=== PATIENT | male | born 1970 | race Caucasian/White ===

== ENCOUNTER 2020-09-03 06:02 | Inpatient (IN) | payer MEDICAID ==
[~2020-09-03] VITALS: Ht 177.8 cm; Wt 74.4 kg
[2020-09-03 08:16] LABS: Urine Amorphous Crystal FEW /hpf (None Seen); Urine Bacteria NONE SEEN /hpf (None Seen); Urine Blood Negative /uL (Negative); Urine Specific Gravity 1.008 (1.001-1.035); Urine WBC 1 /hpf (0 - 3)
[2020-09-03 08:22] LABS: Basophils # (auto) 0.1 10 ^3/uL (0-0.2); Eosinophils # (auto) 0 10 ^3/uL (0-0.8); Lymphocytes # (auto) 0.6 10 ^3/uL (0.4-5.4); Mean Corpuscular Volume 107.8 fL (80.0-100.0)
[2020-09-03 08:28] LABS: Basophils % (auto) 0.8 % (0.0-2.0); Hematocrit 41.1 % (41.0-53.0); Hemoglobin 14.4 g/dL (13.5-17.5); Lymphocytes % (auto) 3.3 % (10.0-50.0); Mean Corpuscular Hemoglobin 37.7 pg (28.0-32.0); Mean Corpuscular Hgb Conc. 34.9 g/dL (32.0-36.0); Monocytes # (auto) 2.4 10 ^3/uL (0-1.3); Neutrophils # (auto) 15.1 10 ^3/uL (1.6-8.6); Neutrophils % (auto) 82.9 % (37.0-80.0); Platelet Count (auto) 283 10^3/uL (140-450); Red Blood Cells 3.81 10^6/uL (4.5-5.90); Red Cell Distribution Width 12.7 % (11.8-14.3); White Blood Cell 18.2 10^3/uL (4.4-10.8)
[2020-09-03] MEDS ORDERED: methylPREDNISolone SOD SUCC 125 MG/2 ML VL IV ONE (08:30)
[2020-09-03] MEDS ORDERED: IPRATROPIUM BROM 0.5 MG/2.5ML INH SOL NEB ONE (08:30)
[2020-09-03] MEDS ORDERED: cefTRIAXone 1GM/50ML D5W 50 ML IV ONE (08:30)
[2020-09-03] MEDS ORDERED: ALBUTEROL SULF 2.5 MG/0.5ML(0.5%) NEB SOLN NEB ONE (08:30)
[2020-09-03 09:08] LABS: Albumin 2.4 g/dL (3.4-5.0)
[2020-09-03 09:10] LABS: BUN/Creatinine Ratio 9.8
[2020-09-03 09:13] LABS: Bilirubin, Total 2.3 mg/dL (0.2-1.0); Total Protein 6.3 g/dL (6.4-8.2)
[2020-09-03 09:14] LABS: Potassium 2.7 mmol/L (3.5-5.1)
[2020-09-03] MEDS ORDERED: AZITHROMYCIN 500MG/ 250ML 250 ML IV ONE (09:15)
[2020-09-03] MEDS ORDERED: POTASSIUM EFFERVESENT TAB 25 MEQ PO ONE (09:15)
[2020-09-03] MEDS ORDERED: VANCOMYCIN PER PHARMACY 0 MG IV SCH (11:00)
[2020-09-03] MEDS ORDERED: NITROGLYCERIN 0.4 MG SL TAB SL PRN (11:00)
[2020-09-03] MEDS ORDERED: POTASSIUM CHLORIDE 40 MEQ in SOD CHL 0.45% 1,000 ML IV SCH (11:00)
[2020-09-03] MEDS ORDERED: ACETAMINOPHEN 500 MG TAB PO PRN (11:00)
[2020-09-03] MEDS ORDERED: MORPHINE SULF INJ 2 MG/ML SYRINGE 1ML IV PRN (11:00)
[2020-09-03] MEDS ORDERED: IOHEXOL 300 MG/ML 100ML BOTTLE IJ ONE ×2 (11:14→13:05)
[2020-09-03] MEDS: PIPERACILLIN-TAZOB 3.375GM 100 ML IV SCH ×3 (12:36→23:41)
[2020-09-03 13:04] LABS: Amphetamine Screen, Urine NEGATIVE (NEGATIVE); Barbiturate Scree,Urine NEGATIVE (NEGATIVE); Benzodiazephine Screen, Urine NEGATIVE (NEGATIVE); Cannabinoid Screen, Urine POSITIVE (NEGATIVE); Cocaine Screen, Urine NEGATIVE (NEGATIVE); Opiate Scree,Urine NEGATIVE (NEGATIVE); Phencyclidine Screen, Urine NEGATIVE (NEGATIVE)
[2020-09-03 13:30] VITALS: BP 109/73
[2020-09-03] MEDS ORDERED: ENOXAPARIN SOD 80 MG/0.8ML SYRINGE SC ONE (14:30)
[2020-09-03] MEDS ORDERED: ENOXAPARIN SOD 100 MG/1 ML SYRINGE SC ONE (14:30)
[2020-09-03 15:11] VITALS: BP 109/73
[2020-09-03 16:56] VITALS: BP 102/73
[2020-09-03] MEDS: ALBUTEROL SULF 2.5 MG/0.5ML(0.5%) NEB SOLN NEB PRN (19:17)
[2020-09-03] MEDS: IPRATROPIUM BROM 0.5 MG/2.5ML INH SOL NEB PRN (19:17)
[2020-09-03] MEDS: HYDROcodone-ACET 5/325MG TAB PO PRN (20:18)
[2020-09-03] MEDS: ENOXAPARIN SOD 80 MG/0.8ML SYRINGE SC SCH (21:21)
[2020-09-03 22:00] VITALS: BP 117/73
[2020-09-03] MEDS ORDERED: ENOXAPARIN SOD 100 MG/1 ML SYRINGE SC SCH (22:00)
[2020-09-04 05:00] VITALS: BP 109/73
[2020-09-04] MEDS: PIPERACILLIN-TAZOB 3.375GM 100 ML IV SCH ×4 (05:53→23:45)
[2020-09-04 06:17] LABS: Basophils # (auto) 0 10 ^3/uL (0-0.2); Basophils % (auto) 0.1 % (0.0-2.0); Eosinophils # (auto) 0 10 ^3/uL (0-0.8); Hematocrit 38.7 % (41.0-53.0); Hemoglobin 13.6 g/dL (13.5-17.5); Lymphocytes # (auto) 0.8 10 ^3/uL (0.4-5.4); Mean Corpuscular Hemoglobin 38.4 pg (28.0-32.0); Mean Corpuscular Hgb Conc. 35.2 g/dL (32.0-36.0); Mean Corpuscular Volume 108.9 fL (80.0-100.0); Monocytes # (auto) 1.1 10 ^3/uL (0-1.3); Monocytes % (auto) 7.7 % (0.0-12.0); Neutrophils # (auto) 12.1 10 ^3/uL (1.6-8.6); Neutrophils % (auto) 86.2 % (37.0-80.0); Platelet Count (auto) 318 10^3/uL (140-450); Red Blood Cells 3.55 10^6/uL (4.5-5.90)
[2020-09-04 06:33] LABS: INR 1.11 (0.9-1.15); Partial Thromboplastin Time 33.4 sec (23.0-31.2)
[2020-09-04 06:35] LABS: Calcium 8.2 mg/dL (8.5-10.1); Magnesium 2.1 mg/dL (1.6-2.6)
[2020-09-04 06:44] LABS: Potassium 2.7 mmol/L (3.5-5.1)
[2020-09-04] MEDS ORDERED: POTASSIUM CHL 20 Meq TABLET PO ONE (08:30)
[2020-09-04] MEDS: FAMOTIDINE 20 MG TAB PO SCH (08:38)
[2020-09-04] MEDS: ENOXAPARIN SOD 80 MG/0.8ML SYRINGE SC SCH ×2 (08:38→21:15)
[2020-09-04 09:00] VITALS: BP 109/71
[2020-09-04] MEDS ORDERED: SOD CHL 0.9%/ KCL 40MEQ 1,000 ML IV ONE (10:30)
[2020-09-04] MEDS: AZITHROMYCIN 500MG/ 250ML 250 ML IV SCH (12:18)
[2020-09-04 13:00] VITALS: BP 111/75
[2020-09-04 17:00] VITALS: BP 113/73
[2020-09-04 20:00] VITALS: BP 99/69
[2020-09-04] MEDS: MORPHINE SULF INJ 2 MG/ML SYRINGE 1ML IV PRN (21:15)
[2020-09-04 22:00] VITALS: BP 99/69
[2020-09-05 05:00] VITALS: BP 114/72
[2020-09-05 05:55] LABS: Basophils # (auto) 0.1 10 ^3/uL (0-0.2); Basophils % (auto) 0.6 % (0.0-2.0); Eosinophils # (auto) 0 10 ^3/uL (0-0.8); Eosinophils % (auto) 0.1 % (0.0-7.0); Hematocrit 38.3 % (41.0-53.0); Hemoglobin 13.6 g/dL (13.5-17.5); Lymphocytes % (auto) 8.7 % (10.0-50.0); Mean Corpuscular Hemoglobin 38.7 pg (28.0-32.0); Mean Corpuscular Hgb Conc. 35.6 g/dL (32.0-36.0); Mean Corpuscular Volume 108.6 fL (80.0-100.0); Monocytes # (auto) 1.2 10 ^3/uL (0-1.3); Monocytes % (auto) 10.8 % (0.0-12.0); Neutrophils # (auto) 8.8 10 ^3/uL (1.6-8.6); Neutrophils % (auto) 79.8 % (37.0-80.0); Platelet Count (auto) 355 10^3/uL (140-450); Red Blood Cells 3.53 10^6/uL (4.5-5.90); Red Cell Distribution Width 12.8 % (11.8-14.3); White Blood Cell 11.1 10^3/uL (4.4-10.8)
[2020-09-05] MEDS: PIPERACILLIN-TAZOB 3.375GM 100 ML IV SCH ×3 (06:07→18:06)
[2020-09-05 06:12] LABS: Potassium 3.8 mmol/L (3.5-5.1)
[2020-09-05] MEDS: MORPHINE SULF INJ 2 MG/ML SYRINGE 1ML IV PRN (06:19)
[2020-09-05 06:20] LABS: Albumin 2.4 g/dL (3.4-5.0); Bilirubin, Total 1.6 mg/dL (0.2-1.0); Calcium 8.3 mg/dL (8.5-10.1); Ferritin 793.5 ng/mL (10-322); Total Protein 6.2 g/dL (6.4-8.2)
[2020-09-05 06:21] LABS: Carcinoembryonic Antigen 1.29 ng/mL (<5.0 OR =)
[2020-09-05 09:00] VITALS: BP 118/86
[2020-09-05] MEDS: FAMOTIDINE 20 MG TAB PO SCH (09:15)
[2020-09-05] MEDS: AZITHROMYCIN 500MG/ 250ML 250 ML IV SCH (09:15)
[2020-09-05] MEDS: ENOXAPARIN SOD 80 MG/0.8ML SYRINGE SC SCH ×2 (09:15→22:46)
[2020-09-05] MEDS: IPRATROPIUM BROM 0.5 MG/2.5ML INH SOL NEB PRN ×2 (11:59→18:39)
[2020-09-05] MEDS: ALBUTEROL SULF 2.5 MG/0.5ML(0.5%) NEB SOLN NEB PRN ×2 (11:59→18:39)
[2020-09-05 13:00] VITALS: BP 124/81
[2020-09-05 13:15] LABS: Hepatitis B Core IgM Negative; Hepatitis B Surface Antigen Negative (Negative)
[2020-09-05 16:46] VITALS: BP 103/68
[2020-09-05 22:00] VITALS: BP 115/64
[2020-09-05] MEDS: HYDROcodone-ACET 5/325MG TAB PO PRN (23:04)
[2020-09-06] MEDS: PIPERACILLIN-TAZOB 3.375GM 100 ML IV SCH ×3 (00:03→11:58)
[2020-09-06 05:00] VITALS: BP 123/79
[2020-09-06] MEDS: ENOXAPARIN SOD 80 MG/0.8ML SYRINGE SC SCH ×2 (08:59→22:00)
[2020-09-06] MEDS: FAMOTIDINE 20 MG TAB PO SCH (08:59)
[2020-09-06] MEDS: AZITHROMYCIN 500MG/ 250ML 250 ML IV SCH (08:59)
[2020-09-06 09:00] VITALS: BP 114/71
[2020-09-06 13:00] VITALS: BP 105/69
[2020-09-06 13:26] VITALS: BP 114/71
[2020-09-06 16:32] VITALS: BP 96/60
[2020-09-06] MEDS: cefTRIAXone 1GM/50ML D5W 50 ML IV SCH (18:00)
[2020-09-06 22:00] VITALS: BP 119/75
[2020-09-07 05:00] VITALS: BP 111/68
[2020-09-07 09:00] VITALS: BP 103/65
[2020-09-07] MEDS: FAMOTIDINE 20 MG TAB PO SCH (09:29)
[2020-09-07] MEDS: ENOXAPARIN SOD 80 MG/0.8ML SYRINGE SC SCH ×2 (09:29→21:16)
[2020-09-07] MEDS: cefTRIAXone 1GM/50ML D5W 50 ML IV SCH (09:29)
[2020-09-07] MEDS: AZITHROMYCIN 500MG/ 250ML 250 ML IV SCH (09:29)
[2020-09-07] MEDS: HYDROcodone-ACET 5/325MG TAB PO PRN ×2 (09:36→21:17)
[2020-09-07 12:37] VITALS: BP 105/73
[2020-09-07 17:00] VITALS: BP 116/76
[2020-09-07 22:00] VITALS: BP 103/75
[2020-09-08 05:00] VITALS: BP 112/71
[2020-09-08 07:00] LABS: Hemoglobin 13.7 g/dL (13.5-17.5)
[2020-09-08 07:03] LABS: Basophils # (auto) 0.1 10 ^3/uL (0-0.2); Basophils % (auto) 1.8 % (0.0-2.0); Eosinophils # (auto) 0.1 10 ^3/uL (0-0.8); Eosinophils % (auto) 1.4 % (0.0-7.0); Hematocrit 39.3 % (41.0-53.0); Lymphocytes # (auto) 1.4 10 ^3/uL (0.4-5.4); Lymphocytes % (auto) 21.2 % (10.0-50.0); Mean Corpuscular Hemoglobin 38.4 pg (28.0-32.0); Mean Corpuscular Volume 109.7 fL (80.0-100.0); Monocytes # (auto) 0.8 10 ^3/uL (0-1.3); Monocytes % (auto) 12.7 % (0.0-12.0); Neutrophils # (auto) 4.2 10 ^3/uL (1.6-8.6); Neutrophils % (auto) 62.9 % (37.0-80.0); Nucleated Red Blood Cells % 0.1 %; Red Blood Cells 3.58 10^6/uL (4.5-5.90); White Blood Cell 6.6 10^3/uL (4.4-10.8)
[2020-09-08 07:11] LABS: INR 0.97 (0.9-1.15); Partial Thromboplastin Time 26.9 sec (23.0-31.2)
[2020-09-08 07:16] LABS: Potassium 4.1 mmol/L (3.5-5.1)
[2020-09-08 07:21] LABS: Albumin 2.6 g/dL (3.4-5.0); BUN/Creatinine Ratio 12.5; Bilirubin, Total 0.6 mg/dL (0.2-1.0); Calcium 8.9 mg/dL (8.5-10.1); Magnesium 2.3 mg/dL (1.6-2.6); Phosphorus 3.9 mg/dL (2.5-4.90); Total Protein 7.1 g/dL (6.4-8.2)
[2020-09-08 08:03] LABS: Platelet Count (auto) 500 10^3/uL (140-450)
[2020-09-08 09:00] VITALS: BP 104/79
[2020-09-08] MEDS: cefTRIAXone 1GM/50ML D5W 50 ML IV SCH (09:40)
[2020-09-08] MEDS: ENOXAPARIN SOD 80 MG/0.8ML SYRINGE SC SCH ×2 (09:41→21:25)
[2020-09-08] MEDS: AZITHROMYCIN 500MG/ 250ML 250 ML IV SCH (09:41)
[2020-09-08] MEDS: FAMOTIDINE 20 MG TAB PO SCH (09:41)
[2020-09-08] MEDS: HYDROcodone-ACET 5/325MG TAB PO PRN ×2 (09:42→21:42)
[2020-09-08 12:35] VITALS: BP 100/66
[2020-09-08 16:55] VITALS: BP 115/72
[2020-09-08 22:00] VITALS: BP 99/62
[2020-09-09 05:00] VITALS: BP 105/76
[2020-09-09 09:00] VITALS: BP 98/70
[2020-09-09] MEDS: cefTRIAXone 1GM/50ML D5W 50 ML IV SCH (09:00)
[2020-09-09 09:32] VITALS: BP 105/76
[2020-09-09] MEDS: AZITHROMYCIN 500MG/ 250ML 250 ML IV SCH (10:00)
[2020-09-09] MEDS: FAMOTIDINE 20 MG TAB PO SCH (10:09)
[2020-09-09] MEDS: ENOXAPARIN SOD 80 MG/0.8ML SYRINGE SC SCH ×2 (10:09→21:30)
[2020-09-09 12:33] VITALS: BP 99/65
[2020-09-09 22:00] VITALS: BP 101/64
[2020-09-10 05:00] VITALS: BP 107/72
[2020-09-10 06:08] LABS: Basophils # (auto) 0.2 10 ^3/uL (0-0.2); Eosinophils # (auto) 0.1 10 ^3/uL (0-0.8); Lymphocytes # (auto) 1.5 10 ^3/uL (0.4-5.4); Monocytes # (auto) 0.7 10 ^3/uL (0-1.3)
[2020-09-10 06:14] LABS: Hematocrit 36.3 % (41.0-53.0); Hemoglobin 12.9 g/dL (13.5-17.5); Lymphocytes % (auto) 28.7 % (10.0-50.0); Mean Corpuscular Hemoglobin 38.6 pg (28.0-32.0); Mean Corpuscular Hgb Conc. 35.5 g/dL (32.0-36.0); Mean Corpuscular Volume 108.9 fL (80.0-100.0); Monocytes % (auto) 13.7 % (0.0-12.0); Neutrophils # (auto) 2.7 10 ^3/uL (1.6-8.6); Neutrophils % (auto) 52.6 % (37.0-80.0); Platelet Count (auto) 489 10^3/uL (140-450); Red Blood Cells 3.33 10^6/uL (4.5-5.90); White Blood Cell 5.1 10^3/uL (4.4-10.8)
[2020-09-10 06:37] LABS: Potassium 4.1 mmol/L (3.5-5.1)
[2020-09-10 06:49] LABS: Albumin 2.5 g/dL (3.4-5.0); BUN/Creatinine Ratio 8.3; Bilirubin, Total 0.4 mg/dL (0.2-1.0); Calcium 8.6 mg/dL (8.5-10.1); Total Protein 6.8 g/dL (6.4-8.2)
[2020-09-10 08:00] VITALS: BP 98/70
[2020-09-10] MEDS: cefTRIAXone 1GM/50ML D5W 50 ML IV SCH (09:02)
[2020-09-10] MEDS: FAMOTIDINE 20 MG TAB PO SCH (09:02)
[2020-09-10] MEDS: ENOXAPARIN SOD 80 MG/0.8ML SYRINGE SC SCH ×2 (09:03→21:44)
[2020-09-10] MEDS: MORPHINE SULF INJ 2 MG/ML SYRINGE 1ML IV PRN ×2 (09:03→20:44)
[2020-09-10 12:00] VITALS: BP 96/60
[2020-09-10 16:00] VITALS: BP 119/79
[2020-09-10 20:00] VITALS: BP 110/73
[2020-09-10 22:08] VITALS: BP 110/73
[2020-09-11 05:09] VITALS: BP 109/79
[2020-09-11] MEDS: FAMOTIDINE 20 MG TAB PO SCH (08:39)
[2020-09-11] MEDS: cefTRIAXone 1GM/50ML D5W 50 ML IV SCH (08:39)
[2020-09-11] MEDS: ENOXAPARIN SOD 80 MG/0.8ML SYRINGE SC SCH ×2 (08:39→21:47)
[2020-09-11 09:00] VITALS: BP 112/76
[2020-09-11 13:00] VITALS: BP 103/68
[2020-09-11 17:00] VITALS: BP 112/73
[2020-09-11] MEDS: MORPHINE SULF INJ 2 MG/ML SYRINGE 1ML IV PRN (19:59)
[2020-09-11 20:00] VITALS: BP 109/72
[2020-09-11 22:00] VITALS: BP 156/93
[2020-09-12] VITALS (8 sets, daily range): BP systolic 88–105; BP diastolic 63–74
[2020-09-12] MEDS: FAMOTIDINE 20 MG TAB PO SCH (11:44)
[2020-09-12] MEDS: ENOXAPARIN SOD 80 MG/0.8ML SYRINGE SC SCH ×2 (11:45→23:03)
[2020-09-12] MEDS ORDERED: ARTIFICIAL TEARS 15ml EACHEYE PRN (12:00)
[2020-09-12] MEDS: MORPHINE SULF INJ 2 MG/ML SYRINGE 1ML IV PRN (23:04)
[2020-09-12] MEDS: SODIUM CHLORIDE 0.9% 1,000 ML IV SCH (23:36)
[2020-09-13 05:00] VITALS: BP 110/74
[2020-09-13 06:52] LABS: Basophils # (auto) 0.2 10 ^3/uL (0-0.2); Eosinophils # (auto) 0.1 10 ^3/uL (0-0.8); Eosinophils % (auto) 2.2 % (0.0-7.0); Hemoglobin 13.4 g/dL (13.5-17.5); Lymphocytes # (auto) 1.2 10 ^3/uL (0.4-5.4); Monocytes # (auto) 0.4 10 ^3/uL (0-1.3); Neutrophils % (auto) 50.2 % (37.0-80.0); White Blood Cell 3.7 10^3/uL (4.4-10.8)
[2020-09-13 06:54] LABS: Basophils % (auto) 4.7 % (0.0-2.0); Hematocrit 38.4 % (41.0-53.0); Lymphocytes % (auto) 32.2 % (10.0-50.0); Mean Corpuscular Hgb Conc. 34.9 g/dL (32.0-36.0); Mean Corpuscular Volume 108.9 fL (80.0-100.0); Monocytes % (auto) 10.7 % (0.0-12.0); Neutrophils # (auto) 1.9 10 ^3/uL (1.6-8.6); Platelet Count (auto) 485 10^3/uL (140-450); Red Blood Cells 3.53 10^6/uL (4.5-5.90); Red Cell Distribution Width 12.9 % (11.8-14.3)
[2020-09-13 07:03] LABS: BUN/Creatinine Ratio 12.1; Calcium 8.6 mg/dL (8.5-10.1); Potassium 3.7 mmol/L (3.5-5.1)
[2020-09-13 08:00] VITALS: BP 112/71
[2020-09-13 08:51] VITALS: BP 112/71
[2020-09-13] MEDS: ENOXAPARIN SOD 80 MG/0.8ML SYRINGE SC SCH (10:05)
[2020-09-13] MEDS: FAMOTIDINE 20 MG TAB PO SCH (10:05)
[2020-09-13] MEDS: SODIUM CHLORIDE 0.9% 1,000 ML IV SCH ×2 (10:07→17:15)
[2020-09-13 12:40] VITALS: BP 110/72
[2020-09-13 13:18] VITALS: BP 110/72
[2020-09-13 16:42] VITALS: BP 105/71
== END 2020-09-13 20:10 | disposition home or self-care (01) | DRG 720 ==
LOC: ER 06:02 → EDBD 06:02 → TELE 11:00 → TELE-EAST 12:31
PROVIDERS: ADMIT Nurse Practitioner Acute Care; ATTEND Internal Medicine Nephrology
DX: A41.9 Sepsis, unspecified organism (principal); I26.99 Other pulmonary embolism without acute cor pulmonale; J18.8 Other pneumonia, unspecified organism; I50.22 Chronic systolic (congestive) heart failure; E44.0 Moderate protein-calorie malnutrition; R06.03 Acute respiratory distress; E87.6 Hypokalemia; E87.1 Hypo-osmolality and hyponatremia; K80.20 Calculus of gallbladder without cholecystitis without obstruction; K52.9 Noninfective gastroenteritis and colitis, unspecified; J44.0 Chronic obstructive pulmonary disease with (acute) lower respiratory infection; R42 Dizziness and giddiness; Z68.23 Body mass index [BMI] 23.0-23.9, adult
CPT/HCPCS: 36415; 36600; 71045; 71260; 74177; 80048; 80053; 80307; 81001; 82105; 82378; 82533; 82728; 82805; 83605; 83615; 83735; 83880; 84100; 84443; 85025; 85610; 85730; 86606; 86635; 86703; 86705; 86738; 86803; 87040; 87070; 87077; 87081; 87086; 87205; 87278; 87340; 87426; 93005; 93306; 93970; 94640; 96365; 96366; 96368; 96375; G0378; J0696; J2543

== ENCOUNTER 2021-03-18 07:28 | Emergency (ER) | payer MEDICAID ==
[~2021-03-18] VITALS: Ht 182.9 cm; Wt 74.8 kg
[2021-03-18 11:12] VITALS: BP 151/91
[2021-03-18] MEDS ORDERED: ONDANSETRON ODT 4 MG TAB PO ONE (11:15)
[2021-03-18] MEDS ORDERED: ACETAMINOPHEN/CODEINE#3 (300/30mg) TAB PO ONE (11:15)
== END 2021-03-18 12:06 | disposition home or self-care (01) ==
LOC: ER 07:28 → EDSEX 07:28 → EDBD 07:28 → ER 12:06
DX: S93.402A Sprain of unspecified ligament of left ankle, initial encounter (principal); S90.32XA Contusion of left foot, initial encounter; V29.9XXA Motorcycle rider (driver) (passenger) injured in unspecified traffic accident, initial encounter; Y93.89 Activity, other specified; Y92.89 Other specified places as the place of occurrence of the external cause; Y99.8 Other external cause status
CPT/HCPCS: 73610; 73630; 99284; Q0162